=== PATIENT | female | born 1965 | race Caucasian/White ===

== ENCOUNTER 2018-01-17 22:28 | Observation (INO) | payer OTHER ==
[2018-01-17 23:12] LABS: ADD MAN DIFF? NO
[2018-01-17 23:15] LABS: BASO # 0.1 x10^3/uL (0.0-0.2); BASO % 1 % (0-3); EOS # 0.2 x10^3/uL (0.0-0.7); EOS % 2 % (0-3); HEMATOCRIT 46.9 % (36.0-47.0); HEMOGLOBIN 16.3 g/dL (12.0-15.5); LYMPH # 1.7 x10^3/uL (1.0-4.8); LYMPH % 22 % (24-48); MEAN CORPUSCULAR HEMOGLOBIN 31 pg (25-35); MEAN CORPUSCULAR HGB CONC 35 g/dL (31-37); MEAN CORPUSCULAR VOLUME 89 fL (79-100); MONO # 0.5 x10^3/uL (0.0-1.1); MONO % 7 % (0-9); NEUT # 5.2 x10^3uL (1.8-7.7); NEUT % 68 % (31-73); PLATELET COUNT 126 x10^3/uL (140-400); RED CELL DISTRIBUTION WIDTH 14.8 % (11.5-14.5); WHITE BLOOD COUNT 7.6 x10^3/uL (4.0-11.0)
[2018-01-17 23:23] LABS: ANION GAP 11 (6-14); BLOOD UREA NITROGEN 21 mg/dL (7-20); BUN/CREATININE RATIO 18 (6-20); CALCIUM 9.8 mg/dL (8.5-10.1); CARBON DIOXIDE 26 mmol/L (21-32); CHLORIDE 103 mmol/L (98-107); CREATININE 1.2 mg/dL (0.6-1.0); GFR 46.8; GLUCOSE 172 mg/dL (70-99); POTASSIUM 3.5 mmol/L (3.5-5.1); SODIUM 140 mmol/L (136-145)
[2018-01-17] MEDS: ASPIRIN CHEWABLE 81 MG TABLET. PO (23:28)
[2018-01-17 23:29] LABS: ALBUMIN 4.1 g/dL (3.4-5.0); ALBUMIN/GLOBULIN RATIO 1.2 (1.0-1.7); ALK PHOS 47 U/L (46-116); ALT (SGPT) 30 U/L (14-59); AST (SGOT) 20 U/L (15-37); TOTAL BILIRUBIN 0.4 mg/dL (0.2-1.0); TOTAL PROTEIN 7.6 g/dL (6.4-8.2)
[2018-01-17] MEDS: NITROGLYCERIN SUBLINGUAL 0.4 MG BOTTLE OF 25. SL (23:29)
[2018-01-17 23:31] LABS: TROPONINI < 0.017 ng/mL (0.000-0.055)
[2018-01-17 23:34] LABS: NT-PRO BNP 44 pg/mL (0-124)
[2018-01-18] MEDS ORDERED: ACETAMINOPHEN 325 MG TABLET. PO (00:30)
[2018-01-18] MEDS ORDERED: ONDANSETRON PF 4 MG/2 ML VIAL. IV (00:30)
[2018-01-18] MEDS: MORPHINE SULFATE 4 MG/ML DISP.SYRIN. IV ×3 (01:30→20:09)
[2018-01-18 03:18] LABS: TROPONINI < 0.017 ng/mL (0.000-0.055)
[2018-01-18] MEDS ORDERED: CONTRAST GIVEN MC (09:00)
[2018-01-18] MEDS ORDERED: PNEUMOCOCCAL VAX SCREEN BY RX. MC (09:00)
[2018-01-18] MEDS: IOHEXOL 300 MG/ML 100ML VIAL. IV (09:32)
[2018-01-18] MEDS: PNEUMOC CONJ VACC 23-VALENT 0.5 ML VIAL. VAX IM (14:19)
[2018-01-19 04:55] LABS: CHOLESTEROL 232 mg/dL (0-200); HDLC 37 mg/dL (40-60); LDLC 154 mg/dL (0-100); NON-HDL CHOLESTEROL 195 mg/dL (0-129); TRIGLYCERIDES 203 mg/dL (0-150); VLDLC 41 mg/dL (0-40)
[2018-01-19 08:58] LABS: CHOLESTEROL/HDL RATIO 6.3
[2018-01-19] MEDS: REGADENOSON 0.4 MG/5 ML DISP.SYRIN. IV (10:39)
[2018-01-19] MEDS ORDERED: ATORVASTATIN CALCIUM 10 MG TABLET. PO (21:00)
[2018-01-19] MEDS ORDERED: ATORVASTATIN CALCIUM 40 MG TABLET. PO (21:00)
[2018-01-20] MEDS ORDERED: ASPIRIN ENTERIC COATED 81 MG TABLET.DR. PO (08:00)
== END 2018-01-19 17:15 | disposition home or self-care (01) ==
LOC: 5 SOUTH 01-18 00:11 → ER 22:28
DX: R07.89 Other chest pain (principal); E78.5 Hyperlipidemia, unspecified; I10 Essential (primary) hypertension; F17.210 Nicotine dependence, cigarettes, uncomplicated; F41.9 Anxiety disorder, unspecified; R20.0 Anesthesia of skin; J45.909 Unspecified asthma, uncomplicated; Z82.49 Family history of ischemic heart disease and other diseases of the circulatory system
CPT/HCPCS: 36415; 71045; 71260; 78452; 80053; 80061; 83880; 84484; 85025; 93005; 93017; 96374; 96375; 96376; 99285-25; 99407; A9500; G0378; G0379; J2270; J2785; Q9967